=== PATIENT | female | born 1965 | race Hispanic/Latino ===

== ENCOUNTER 2018-04-21 12:52 | Emergency (ER) | payer OTHER ==
[~2018-04-21] VITALS: Ht 152.4 cm; Wt 71.7 kg
[~2018-04-21 12:52] MED LIST: AMITRIPTYLINE H10 MG PO; LISINOPRIL10 MG PO; LOVASTATIN20 MG PO; NAPROSYN500 MG PO; NORCO 5-325 TA1 EACH PO
[2018-04-21] MEDS ORDERED: CLOBETASOL EMOL15 GM TOP (13:05)
== END 2018-04-21 13:16 | disposition home or self-care (01) ==
LOC: ED 12:52
DX: R21 Rash and other nonspecific skin eruption (principal)

== ENCOUNTER 2022-03-17 18:08 | Emergency (ER) | payer OTHER ==
[~2022-03-17] VITALS: Ht 152.4 cm; Wt 71.7 kg
[~2022-03-17 18:08] MED LIST changes: +CLOBETASOL EMOL15 GM TOP
[2022-03-17] MEDS ORDERED: HYDROCHLOROTHIA25 MG PO (18:21)
[2022-03-17] MEDS ORDERED: ROBITUSSIN COU237 M2 PO (18:39)
[2022-03-17] MEDS ORDERED: NAPROSYN500 MG PO (18:39)
== END 2022-03-17 19:20 | disposition home or self-care (01) ==
LOC: ED 18:08
DX: J06.9 Acute upper respiratory infection, unspecified (principal); I10 Essential (primary) hypertension; E78.00 Pure hypercholesterolemia, unspecified; Z79.899 Other long term (current) drug therapy; Z20.822 Contact with and (suspected) exposure to COVID-19
CPT/HCPCS: C9803; U0003